=== PATIENT | female | born 1990 | race African-American/Black ===

== ENCOUNTER 2017-01-01 14:15 | Outpatient (RCR) | payer MEDICAID ==
[~2017-01-01 14:15] MED LIST: CALCIUM CARBONATE PO; FERROUS SULFATE27 MG PO; FOLIC ACID1 MG PO; IMPLANON68 MG ID; LAMICTAL 25MG T25 MG; NO HOME MEDICATIONS; PREDNISONE20 MG PO; PRENATAL VITAMI1 TAB PO; ZOFRAN 4MG T4 MG/TAB PO
== END 2017-02-07 | disposition home or self-care (01) ==
LOC: WSPT
DX: M25.552 Pain in left hip (principal); M25.551 Pain in right hip